=== PATIENT | male | born 2000 | race Caucasian/White ===

== ENCOUNTER 2024-02-18 08:22 | Emergency (ER) | payer SELFPAY ==
[2024-02-18 08:28] VITALS: BP 157/102; PULSE 114; RESP 16; TEMP 36.8; O2SAT 96; BMI 24.3
[2024-02-18 09:01] VITALS: O2SAT 97
[2024-02-18 09:02] VITALS: BP 148/99; O2SAT 98
--- NOTE | 2024-02-18 10:24 | PC.NURSE ---
dr maher aware that patient left [facility]
== END 2024-02-18 10:10 | disposition left against medical advice (07) ==
PROVIDERS: Emergency Provider Emergency Medicine
CPT/HCPCS: 99281

== ENCOUNTER 2024-09-12 04:51 | Emergency (ER) | payer SELFPAY ==
[2024-09-12 04:56] VITALS: PULSE 118; O2SAT 96
[2024-09-12 04:57] VITALS: BP 162/110; PULSE 118; O2SAT 96
[2024-09-12 04:58] VITALS: BP 151/101; PULSE 110; RESP 18; TEMP 37; O2SAT 94; O2SAT 96; BMI 24.3
[2024-09-12 05:00] VITALS: PULSE 109; O2SAT 96
[2024-09-12] MEDS: FLUORESCEIN 1 MG STRIP EYE-RIGHT (05:12)
[2024-09-12] MEDS: PROPARACAINE 0.5% OPHTH SOL 1 DROPS EYE-RIGHT (05:13)
--- NOTE | 2024-09-12 05:21 | ED_ITS ---
HPI - Eye Problem General Chief complaint: Eye Problems Stated complaint: got something in right eye Time Seen by Provider: 09/12/24 04:54 Source: patient Mode of arrival: Ambulatory History of Present Illness HPI Narrative: Patient is a 24-year-old male without any significant past medical history presenting to the emergency department from home for evaluation of eye irritation, he states he was at work where he got some sort of hand singer in his eye, he states that it splashed in his eye he immediately went to the sink rinsed it thoroughly but still had a little bit of irritation therefore decided come into the ED for further evaluation treatment. Patient denies any visual loss, he denies any pain at this time but states he wanted to be ?checked out. Patient does not wear any contacts, no corrective lenses, he denies any other injuries or irritation. Related Data Previous Rx's Medication Instructions Recorded erythromycin 5 mg/gram (0.5 %) eye 0.5 inch EYE-RIGHT Q6H 5 days #3.5 09/12/24 ointment grams Review of Systems Review of Systems Narrative: General: Denies fever, chills, weight loss HEENT: Right eye irritation, Denies headache, eye drainage, head trauma, sore throat, voice change Cardiovascular: Denies any chest pain, palpitations, tachycardia Respiratory: Denies any shortness of breath, cough, wheeze, stridor GI/: Denies any abdominal pain, nausea, vomiting, diarrhea, bright red blood per rectum, melanotic stools, urinary frequency, urinary retention, dysuria, hematuria MSK: Denies any joint pain, muscle pains, swelling Skin: Denies any rashes, lesions, discoloration Neuro: Denies any headache, lightheadedness, dizziness, fainting, weakness Psych: Denies SI/HI Patient History Social History Smoking Status: Current every day smoker Smoking Status: Current every day smoker tobacco type: cigarettes Alcohol type: beer Exam Narrative Exam Narrative: General: Cooperative, comfortable, well-developed, not in acute distress HEENT: Normocephalic, atraumatic, PERRLA, normal sclera, eyelids normal, patient with fluorescein uptake consistent with a corneal abrasion/degradation given chemical splash/exposure to the right eye, this does not encompass the pupil, it is to the 7:00 o'clock region. Negative Estefany sign, no foreign bodies noted, pH of eye 7.0 Neck: Active full range of motion, atraumatic Chest: Normal to inspection, negative crepitus, no overlying erythema ecchymosis Respiratory: Normal respiratory effort, not in acute respiratory distress, clear to auscultation bilaterally negative cough, wheeze, tachypnea, rhonchi, rales Cardiology: Regular rate rhythm negative gallop, murmur, rubs GI/: Normal to inspection, soft, nonrigid, no tenderness to palpation, exam deferred MSK: Full range of active range of motion of all 4 extremities, atraumatic Skin: No rashes lesions noted Neuro: Alert awake oriented x3, moves all 4 extremities spontaneously, cranial nerves intact, able to answer all questions appropriately follows commands didi ropriately Psych: Cooperative, negative suicidal or homicidal ideations Initial Vital Signs Initial Vital Signs: Vital Signs Temperature 98.6 F 09/12/24 04:58 Pulse Rate 110 H 09/12/24 04:58 Respiratory Rate 18 09/12/24 04:58 Blood Pressure 151/101 H 09/12/24 04:58 Pulse Oximetry 94 09/12/24 04:58 Oxygen Delivery Method Room Air 09/12/24 04:58 Course Orders Ordered: Discontinued Medications Fluorescein Sodium (Fluorescein 1 Mg Strip) 1 mg EYE-RIGHT NOW ONE Stop: 09/12/24 04:58 Last Admin: 09/12/24 05:12 Dose: 1 mg Documented By: Proparacaine HCl (Proparacaine 0.5% Ophth Nan) 1 drops EYE-RIGHT NOW ONE Stop: 09/12/24 04:58 Last Admin: 09/12/24 05:13 Dose: 1 drop Documented By: MR Vital Signs Vital signs: Vital Signs - 8 hr 09/12/24 04:58 Temperature 98.6 F Pulse Rate 110 H Respiratory Rate 18 Blood Pressure 151/101 H Pulse Oximetry 94 Oxygen Delivery Method Room Air MDM - Eye Problem Differential Diagnosis Differential diagnosis: Likely corneal abrasion, conjunctivitis, periorbital cellulitis and subconjunctival hemorrhage Lab Data Labs: Point of Care Testing pH,Tear Film,POC Measurement pH 7 MDM Narrative Medical decision making narrative: 24-year-old male with out any significant past medical history comes into the ED from home for evaluation of right eye irritation, states that he got a chemical splashed in his eye 45 minutes prior to arrival at his work. He states that he immediately went to the sink washed out his eye thoroughly is not having any pain or irritation but wanted it checked out. Patient I pH 7.0 here in the emergency department, patient without any loss of vision normal visual acuity, does not wear contacts or corrective lenses. Negative Estefany sign but there is fluorescein uptake noted to the 7:00 o'clock region of the right eye, no ulceration noted no foreign bodies, given chemical exposure and fluorescein up take we will treat patient for corneal abrasion erythromycin ointment. Patient was instructed to follow up with Ophthalmology in outpatient setting he was given strict return precautions he verbalized understanding of this and agrees to being discharged home with outpatient follow up Discharge Plan Departure Patient Disposition: Home Clinical Impression: Corneal abrasion, Chemical exposure of eye Instructions: DI for Chemical Eye Burn Activity Restrictions/Additional Instructions: Please follow up with Ophthalmology in outpatient setting Please read the discharge instructions sheet carefully and bring all papers to all doctor follow-up visits, as it may contain information that your doctor may want to see. Disease processes change and evolve, if your symptoms worsen or if you develop any new symptoms that are concerning to you please return for evaluation. Your evaluation today does not show any evidence of any life- threatening/serious illnesses requiring admission to the hospital or surgery. Please follow-up with your doctor for re-evaluation in approximately 1 day. Seek immediate medical attention for any worrisome symptoms. *If you do not have a primary care provider please contact the [facility] Resource line at [phone]. They will ask some questions about your medical history and help get you set up with a doctor in the community. Prescriptions: New erythromycin 5 mg/gram (0.5 %) ointment 0.5 inch EYE-RIGHT Q6H 5 Days Qty: 3.5 0RF Referrals: Aaliyah Vega MD [Physician] - Stand Alone Forms: Patient Portal/API/Survey
[2024-09-12] MEDS: ERYTHROMYCIN OPHTH 1 GM OINT 1 APPLIC EYE-RIGHT (05:30)
[2024-09-12 05:40] VITALS: BP 134/87; PULSE 89; RESP 16; O2SAT 97
== END 2024-09-12 05:42 | disposition home or self-care (01) ==
PROVIDERS: Emergency Provider Student in an Organized Health Care Education/Training Program
DX: S05.01XA Injury of conjunctiva and corneal abrasion without foreign body, right eye, initial encounter (principal); Z77.098 Contact with and (suspected) exposure to other hazardous, chiefly nonmedicinal, chemicals; W44.8XXA Other foreign body entering into or through a natural orifice, initial encounter
CPT/HCPCS: 99282

== ENCOUNTER 2025-02-02 09:09 | Emergency (ER) | payer OTHER, SELFPAY ==
[2025-02-02] VITALS (12 sets, daily range): BP systolic 122–137; BP diastolic 79–92; PULSE 49–89; RESP 18; TEMP 36.4; O2SAT 98–99; BMI 23.6
--- NOTE | 2025-02-02 09:20 | DI.RAD.S_ITS ---
PROCEDURE: XR CHEST 1V INDICATIONS: cough TECHNIQUE: One view of the chest was acquired. COMPARISON: None. FINDINGS: Surgical changes and devices: None. Lungs and pleura: Lungs are clear. No pleural effusions or pneumothorax. Mediastinum: Mediastinal contours appear normal. Heart size is normal. Bones and chest wall: No suspicious bony lesions. Overlying soft tissues appear unremarkable. IMPRESSION: No acute cardiopulmonary abnormality is seen. Dictated by: Alberto Baldwin M.D. on 02/02/2025 at 8:41 Approved by: Alberto Baldwin M.D. on 02/02/2025 at 8:42
[2025-02-02] MEDS: ONDANSETRON 4 MG/2 ML INJ IV (09:25)
[2025-02-02] MEDS: SODIUM CHLORIDE 0.9% 1,000 ML 1000 ML IV (09:25)
--- NOTE | 2025-02-02 09:32 | ED_ITS ---
HPI - General Adult General Chief complaint: Nausea/Vomiting/Diarrhea Stated complaint: Nausea and coughing Time Seen by Provider: 02/02/25 09:13 History of Present Illness HPI narrative: 24-year-old gentleman with a history of tobacco and marijuana use who presents after nausea and vomiting for 3 days, today was having an increased cough continuing to feel generally unwell. Slightly dizzy when he stands up. He is complaining of muscular abdominal pain from the workup vomiting but no deeper or intra-abdominal tenderness. No significant fevers. This morning he noticed a cough that is seemed like it was slightly worse than his usual smoker's cough. Nonproductive Related Data Previous Rx's ?Medication ?Instructions ?Recorded ondansetron 4 mg disintegrating 4 mg PO Q8H PRN nausea and 02/02/25 tablet vomiting #10 tabs Allergies Allergy/AdvReac Type Severity Reaction Status Date / Time bacitracin (From Neosporin Allergy Verified 02/02/25 09:30 ([id number])) neomycin (From Neosporin Allergy Verified 02/02/25 09:30 ([id number])) polymyxin B (From Neosporin Allergy Verified 02/02/25 09:30 ([id number])) Review of Systems Review of Systems Narrative: Pertinent positive and negative findings as per HPI Patient History Social History Smoking Status: Current every day smoker tobacco type: cigarettes Alcohol type: beer Exam Initial Vital Signs Initial Vital Signs: Vital Signs Temperature 97.6 F 02/02/25 09:10 Pulse Rate 64 02/02/25 09:10 Respiratory Rate 18 02/02/25 09:10 Blood Pressure 137/92 H 02/02/25 09:10 Pulse Oximetry 98 02/02/25 09:10 Oxygen Delivery Method Room Air 02/02/25 09:10 General: Appears to not feel well but in no acute distress. Able to give a complete and coherent history. Well-nourished well-developed HEENT: Dry mucous membranes, normal sclera with reactive pupils, Neck: No JVD, supple Respiratory: Lungs are clear to auscultation, no wheezing no rales no rhonchi. Full and symmetrical air movement Cardiac: Regular rate and rhythm no murmurs no bruits Abdomen: Soft, mild diffuse tenderness without rebound or guarding. He does not have any flank pain. Skin: Overall pale, no rashes Neurologic: Grossly neurologically intact with no obvious asymmetries or abnormalities Psych: Cooperative, appropriate insight and affect Course Orders Ordered: ED Orders 02/02/25 09:20 XR chest 1V Stat Complete Blood Count AUTO DIFF Stat Comprehensive Metabolic Panel Stat Discontinued Medications Sodium Chloride (Normal Saline 0.9%) 1,000 mls @ 1,000 mls/hr IV BOLUS ONE Stop: 02/02/25 10:18 Last Infusion: 02/02/25 10:14 Dose: Infused Documented By: Admin: 02/02/25 09:25 Dose: 1,000 mls/hr Documented By: BETH Ondansetron HCl (Ondansetron 4 Mg/2 Ml Inj) 4 mg IV NOW ONE Stop: 02/02/25 09:20 Last Admin: 02/02/25 09:25 Dose: 4 mg Documented By: BETH Vital Signs Vital signs: Vital Signs - 8 hr 02/02/25 09:10 02/02/25 09:13 02/02/25 09:14 Temperature 97.6 F Pulse Rate 64 67 Pulse Rate [Orthostatic Lying] Pulse Rate [Orthostatic Standing] Respiratory Rate 18 Blood Pressure 137/92 H 137/92 H Blood Pressure [Orthostatic Lying] Blood Pressure [Orthostatic Standing] Pulse Oximetry 98 99 Oxygen Delivery Method Room Air 02/02/25 09:14 02/02/25 09:20 02/02/25 09:23 Temperature Pulse Rate 60 54 L Pulse Rate [Orthostatic Lying] 54 L Pulse Rate [Orthostatic Standing] 89 Respiratory Rate Blood Pressure Blood Pressure [Orthostatic Lying] 122/84 Blood Pressure [Orthostatic Standing] 128/90 Pulse Oximetry 98 99 Oxygen Delivery Method 02/02/25 09:23 02/02/25 09:25 02/02/25 09:25 Temperature Pulse Rate 61 Pulse Rate [Orthostatic Lying] Pulse Rate [Orthostatic Standing] Respiratory Rate 18 Blood Pressure 122/84 128/90 Blood Pressure [Orthostatic Lying] Blood Pressure [Orthostatic Standing] Pulse Oximetry 99 Oxygen Delivery Method 02/02/25 09:30 02/02/25 09:30 02/02/25 10:00 Temperature 97.6 F Pulse Rate 60 Pulse Rate [Orthostatic Lying] Pulse Rate [Orthostatic Standing] Respiratory Rate Blood Pressure 122/84 123/80 Blood Pressure [Orthostatic Lying] Blood Pressure [Orthostatic Standing] Pulse Oximetry 98 Oxygen Delivery Method 02/02/25 10:00 02/02/25 10:30 02/02/25 10:30 Temperature Pulse Rate 49 L 59 L Pulse Rate [Orthostatic Lying] Pulse Rate [Orthostatic Standing] Respiratory Rate Blood Pressure 123/88 Blood Pressure [Orthostatic Lying] Blood Pressure [Orthostatic Standing] Pulse Oximetry 99 98 Oxygen Delivery Method Medical Decision Making Lab Data 02/02/25 09:20 02/02/25 09:20 Labs: Lab Results 02/02/25 Range/Units 09:20 WBC 8.1 (4.5-11.0) X10^3/uL RBC 4.43 L (4.5-5.9) X10^6/uL Hgb 15.1 (13.5-17.5) g/dL Hct 42.7 (41-53) % MCV 96.4 (80-100) fL MCH 34.1 H (26-34) PG MCHC 35.4 (30-36) % RDW 13.6 (11.6-14.8) % Plt Count 434 H (150-400) X10^3/uL Neut % (Auto) 72.4 (50-75) % Lymph % (Auto) 21.1 L (25-40) % Gray % (Auto) 5.5 (3-14) % Eos % (Auto) 0.6 L (2-4) % Baso % (Auto) 0.4 (0-2) % Neut # (Auto) 5800 (7807-7941) /uL Lymph # (Auto) 1700 (8818-3815) /uL Gray # (Auto) 400 (0-900) /uL Eos # (Auto) 0 (0-450) /uL Baso # (Auto) 0 (0-100) /uL Sodium 138 (137-145) mmol/L Potassium 3.9 (3.4-5.1) mmol/L Chloride 100 (98-107) mmol/L Carbon Dioxide 25 (22-32) mmol/L BUN 17 (9-20) mg/dL Creatinine 0.93 (0.66-1.25) mg/dL Estimated GFR > 60 (>60) mL/min BUN/Creatinine Ratio 18.3 (6-22) Glucose 109 H (70-99) mg/dL Calcium 9.0 (8.4-10.2) mg/dL Total Bilirubin 0.8 (0.2-1.3) mg/dL AST 54 (17-59) IU/L ALT 129 H (<50) IU/L Alkaline Phosphatase 81 (38-126) U/L Total Protein 7.8 (6.3-8.2) g/dL Albumin 4.8 (3.5-5.0) g/dL Globulin 3.0 (1.7-4.1) g/dL Albumin/Globulin Ratio 1.6 (1.0-2.8) MDM Narrative Medical decision making narrative: CC: Nausea vomiting diarrhea for 3 days with increased cough today Complicating co-morbidities: Tobacco abuse Data collected from: patient Differential considered: Viral gastro enteritis, developing pneumonia, dehydration, significant electrolyte abnormalities Exam documented above, pertinent findings include: Slightly pale, lungs are clear, abdomen does not have any deep tenderness and he does not have an acute surgical abdomen Lab Test results independently reviewed as above. Pertinent findings: CBC is unremarkable Chemistries show ALT elevated at 129. Remainder of labs are unremarkable Imaging studies independently reviewed: Chest x-ray with no acute pathology Treatments: 1 L of fluid, Zofran Discussion: 24-year-old gentleman who has had 4 days of nausea and vomiting and today was having coughing spasms severe enough that he ended up with vomiting. Workup does not show sepsis, bacterial pneumonia, obvious pulmonary infiltrates, acute kidney injury or electrolyte abnormality. His AlT is slightly elevated, this may be related to the vomiting and presumed viral underlying etiology. Would recommend repeat blood work in the future to make sure that numbers are resolving. We also discussed decreasing overall alcohol use. At this point he is feeling significantly better, he is able to eat and drink. Belly is re- evaluated, soft no evidence of acute surgical abdomen. A prescription for Zofran we will be sent to his pharmacy. There was no indication for further workup or hospitalization. He is safe for discharge Discharge Plan Departure Patient Disposition: Home Clinical Impression: Gastroenteritis Instructions: DI for Bacterial Gastroenteritis -- Adult Activity Restrictions/Additional Instructions: Thank you for coming in today I suspect that you had virus that was causing your nausea vomiting and diarrhea. Blood work does not suggest acute bacterial infection that would require antibiotics. There was no evidence of pneumonia. Your belly exam does not suggest that you have appendicitis or other infectious problem that would require further hospitalization or surgery. I have sent a prescription of Zofran to help with nausea to [facility] in [place]. Please make sure you are drinking plenty of fluids, consider getting some electrolyte solution, easy to digest foods for the next couple of days. If you find that you are getting worse or develop any new symptoms, please feel free to return to the emergency department for further evaluation. Prescriptions: New ondansetron 4 mg tablet,disintegrating 4 mg PO Q8H PRN (Reason: nausea and vomiting) Qty: 10 0RF Stand Alone Forms: Patient Portal/API
[2025-02-02 09:37] LABS: Add Manual Diff / Slide Review NO; Hematocrit 42.7 % (41-53); Hemoglobin 15.1 g/dL (13.5-17.5); Lymphocytes Absolute Auto 1700 /uL (1100-4500); Mean Corpuscular HGB Conc 35.4 % (30-36); Mean Corpuscular Hemoglobin 34.1 PG (26-34); Mean Corpuscular Volume 96.4 fL (80-100); Platelet Count 434 X10^3/uL (150-400)
[2025-02-02 09:53] LABS: Alanine Aminotransferase 129 IU/L (<50); Albumin 4.8 g/dL (3.5-5.0); Albumin Globulin Ratio 1.6 (1.0-2.8); Alkaline Phosphatase 81 U/L (38-126); Blood Urea Nitrogen 17 mg/dL (9-20); Calcium 9.0 mg/dL (8.4-10.2); Carbon Dioxide 25 mmol/L (22-32); Chloride 100 mmol/L (98-107); Estimated Glomerular Filt Rate > 60 mL/min (>60); Globulin 3.0 g/dL (1.7-4.1); Glucose 109 mg/dL (70-99); HEMOLYSIS < 15 (0-50); Potassium 3.9 mmol/L (3.4-5.1); Sodium 138 mmol/L (137-145); Total Protein 7.8 g/dL (6.3-8.2)
== END 2025-02-02 12:06 | disposition home or self-care (01) ==
PROVIDERS: Emergency Provider Emergency Medicine
DX: K52.9 Noninfective gastroenteritis and colitis, unspecified (principal); R10.9 Unspecified abdominal pain; F17.210 Nicotine dependence, cigarettes, uncomplicated
CPT/HCPCS: 36415; 71045; 80053; 85025; 96361; 96374; 99284; J2405

== ENCOUNTER 2025-04-28 12:15 | Emergency (ER) | payer OTHER, SELFPAY ==
[2025-04-28 12:21] VITALS: BP 139/102; PULSE 105; RESP 18; TEMP 36.6; O2SAT 98; BMI 24.9
--- NOTE | 2025-04-28 15:19 | ED_ITS ---
HPI - Nausea/Vomiting/Diarrhea
--- NOTE | 2025-04-28 15:19 | ED.NAVMDI ---
HPI - Nausea/Vomiting/Diarrhea General Chief complaint: Nausea/Vomiting/Diarrhea Stated complaint: nausea, throwing up blood Time Seen by Provider: 04/28/25 15:19 Source: patient Mode of arrival: Ambulatory History of Present Illness HPI Narrative: 25-year-old presents with nonbilious nausea vomiting along with specks of blood and numerous bouts of watery diarrhea for the past week. 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 In fact he was seen at would be ER last night given Reglan and omeprazole but he was not vomiting at that time and was sent home and had no IV hydration. He did get his prescriptions filled this morning but he started vomiting and came into the ER today. Other than what is stated 14 point review of system is negative. Related Data Previous Rx's ?Medication ?Instructions ?Recorded ondansetron 4 mg disintegrating 4 mg PO Q8H PRN nausea and 02/02/25 tablet vomiting #10 tabs Allergies Allergy/AdvReac Type Severity Reaction Status Date / Time bacitracin (From Neosporin Allergy Verified 04/28/25 12:27 ([id number])) neomycin (From Neosporin Allergy Verified 04/28/25 12:27 ([id number])) polymyxin B (From Neosporin Allergy Verified 04/28/25 12:27 ([id number])) Review of Systems Review of Systems ROS Unobtainable: All systems reviewed & are unremarkable except as noted in HPI and below Patient History Social History Smoking Status: Current every day smoker Smoking Status: Current every day smoker tobacco type: cigarettes Alcohol type: beer Exam Narrative Exam Narrative: GENERAL: [25] year old patient appears stated age. Well-developed patient, in mild distress. HEAD: Atraumatic. Normocephalic. EYES: Pupils equal round and reactive. Extraocular motions intact. No scleral icterus. No injection or drainage. ENT: Nose without bleeding, purulent drainage. Throat without erythema, tonsillar hypertrophy or exudate. Airway patent. NECK: Trachea midline. Non tender CARDIOVASCULAR: Regular rate and rhythm without murmurs, gallops, or rubs. RESPIRATORY: Clear to auscultation. Breath sounds equal bilaterally. No wheezes, rales, or rhonchi. GASTROINTESTINAL: Abdomen soft, non-tender, nondistended. EXTREMITIES: No edema or joint tenderness. BACK: Nontender without deformity or crepitance. No flank tenderness. NEURO: AOx3. SKIN: No rash or erythema of visible areas Initial Vital Signs Initial Vital Signs: Vital Signs Temperature 97.8 F 04/28/25 12:21 Pulse Rate 105 H 04/28/25 12:21 Respiratory Rate 18 04/28/25 12:21 Blood Pressure 139/102 H 04/28/25 12:21 Pulse Oximetry 98 04/28/25 12:21 Oxygen Delivery Method Room Air 04/28/25 12:21 Course Orders Ordered: ED Orders 04/28/25 15:40 Lipase Stat Discontinued Medications Diphenhydramine HCl (Diphenhydramine 50 Mg/Ml Vial) 50 mg IV NOW ONE Stop: 04/28/25 15:31 Last Admin: 04/28/25 15:43 Dose: 50 mg Documented By: NOEMÍ Droperidol (Droperidol 2.5 Mg/Ml Vial) 2.5 mg IV NOW ONE Stop: 04/28/25 15:31 Last Admin: 04/28/25 15:43 Dose: 2.5 mg Documented By: NOEMÍ Lactated Ringer's (Lactated Ringers) 1,000 mls @ 1,000 mls/hr IV BOLUS ONE Stop: 04/28/25 16:29 Last Admin: 04/28/25 15:42 Dose: 1,000 mls/hr Documented By: NOEMÍ Ketorolac Tromethamine (Ketorolac 30 Mg/Ml Vial) 15 mg IV NOW ONE Stop: 04/28/25 15:31 Last Admin: 04/28/25 15:43 Dose: 15 mg Documented By: NOEMÍ Vital Signs Vital signs: Vital Signs - 8 hr 04/28/25 12:21 04/28/25 15:49 04/28/25 15:49 Temperature 97.8 F Pulse Rate 105 H 95 H Respiratory Rate 18 20 Blood Pressure 139/102 H 156/104 H Pulse Oximetry 98 100 Oxygen Delivery Method Room Air 04/28/25 16:00 04/28/25 16:01 04/28/25 16:01 Temperature Pulse Rate 61 63 Respiratory Rate 16 Blood Pressure 142/97 H Pulse Oximetry 99 99 Oxygen Delivery Method MDM - Nausea/Vomiting/Diarrhea Lab Data Labs: Lab Results 04/28/25 Range/Units 15:40 Lipase 82 (23-300) U/L MDM Narrative Medical decision making narrative: All labwork, vital signs, water system operator note, medication list, previous ER visits and all imaging studies reviewed. WBC 8.2 hg 15.1 plt 434 Na 138 K 3.9 CL 100 C02 25 Bun 17 Cr 0.93 GLu 109 ALT 129 rest of LFTs nml, Lipase 82. Pt given LR 1L bolus, droperidol, benadryl, toradol here. Patient feels much better on reexamination. Differential diagnosis viral gastroenteritis, hydration, hyperemesis cannabinoid syndrome. Patient already has Reglan and omeprazole prescription. Clear liquid diet advance as tolerated. Discharge Plan Departure Patient Disposition: Home Clinical Impression: Nausea vomiting and diarrhea Instructions: Nausea and Vomiting-Adult Activity Restrictions/Additional Instructions: Return with new or worsening symptoms. Keep hydrated clear liquid diet advance as tolerated. Take medicines as previously prescribed by the other emergency room doctor. Prescriptions: No Action ondansetron 4 mg tablet,disintegrating 4 mg PO Q8H PRN (Reason: nausea and vomiting) Qty: 10 0RF Stand Alone Forms: Patient Portal/API
[2025-04-28] MEDS: LACTATED RINGERS 1,000 ML 1000 ML IV (15:42)
[2025-04-28] MEDS: KETOROLAC 30 MG/ML VIAL 15 MG IV (15:43)
[2025-04-28] MEDS: diphenhydrAMINE 50 MG/ML VIAL IV (15:43)
[2025-04-28] MEDS: droPERidol 2.5 MG/ML VIAL IV (15:43)
[2025-04-28 15:49] VITALS: BP 156/104; PULSE 95; RESP 20; O2SAT 100
[2025-04-28 16:00] VITALS: PULSE 61; O2SAT 99
[2025-04-28 16:01] VITALS: BP 142/97; PULSE 63; RESP 16; O2SAT 99
[2025-04-28 16:12] LABS: Lipase 82 U/L (23-300)
[2025-04-28 16:30] VITALS: BP 143/86; PULSE 72; O2SAT 99
[2025-04-28 17:00] VITALS: BP 138/96; O2SAT 99
== END 2025-04-28 17:18 | disposition home or self-care (01) ==
PROVIDERS: Emergency Provider Family Medicine
DX: R11.2 Nausea with vomiting, unspecified (principal); R19.7 Diarrhea, unspecified
CPT/HCPCS: 83690; 96361; 96374; 96375; 99283; 99284; J1200; J1790; J1885; J7120